=== PATIENT | female | born 1965 | race Hispanic/Latino ===

== ENCOUNTER 2018-07-21 20:39 | Emergency (ER) | payer OTHER ==
--- NOTE | 2018-07-21 21:54 | XRay Report ---
FINAL REPORT PROCEDURE: XR WRIST 3+V RT TECHNIQUE: Right wrist, four views HISTORY: pain to RT wrist COMPARISON: No prior studies are available for comparison. FINDINGS: There is cortical irregularity of the 3rd metacarpal, likely related to old healed fracture. There are mild osteoarthritic changes at the radial aspect of the wrist. No acute fracture or dislocation is seen. IMPRESSION: Mild osteoarthritis. No acute fracture is identified
[2018-07-22] MEDS ORDERED: MOTRIN PO ONE ×2 (00:06→01:28)
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
[2018-07-22 01:35] VITALS: BP 128/84
== END 2018-07-22 01:35 | disposition home or self-care (01) ==
LOC: ED 20:39
DX: S66.911A Strain of unspecified muscle, fascia and tendon at wrist and hand level, right hand, initial encounter (principal); E11.9 Type 2 diabetes mellitus without complications; F17.200 Nicotine dependence, unspecified, uncomplicated; Z90.49 Acquired absence of other specified parts of digestive tract; W20.8XXA Other cause of strike by thrown, projected or falling object, initial encounter; Y93.89 Activity, other specified; Y92.89 Other specified places as the place of occurrence of the external cause; Y99.8 Other external cause status